=== PATIENT | female | born 1945 | race American Indian/Alaskan Native ===

== ENCOUNTER 2020-12-01 13:52 | Emergency (ER) | payer MEDICARE ==
[2020-12-01] MEDS ORDERED: cloNIDine 0.2 MG TAB PO ONE (14:56)
--- NOTE | 2020-12-01 15:00 | Event Note ---
ED Screening Note Date of service: 12/01/20 Time: 15:04 ED Screening Note: pt here in ER because her son just suffered cardiac arrest and is pt had grief response and co sob she was signed in and found to be hypertensive she did not take her bp meds bellman captain neuro intact obviously distraught This initial assessment/diagnostic orders/clinical plan/treatment(s) is/are subject to change based on patients health status, clinical progression and re- assessment by fellow clinical providers in the ED. Further treatment and workup at subsequent clinical providers discretion. Patient/guardian urged not to elope from the ED as their condition may be serious if not clinically assessed and cruzito lopez. Initial orders include: clonidine/monitor vs then reevaluate
--- NOTE | 2020-12-01 18:06 | Emergency Department Report ---
ED General Adult HPI - General Chief complaint: Anxiety Stated complaint: SOB/REACTION TO OF SON Time Seen by Provider: 12/01/20 14:49 Source: patient Mode of arrival: Ambulatory Limitations: No Limitations - History of Present Illness Initial comments: Patient is a 75-year-old F [place] female who is presenting with anxiety and need for evaluation after her son and she was having some shortness of breath. Patient denies any chest pain. States she did not take her blood pressure medicines today as of yet. When she started feeling shortness of breath after being told that her son had here in the emergency department her blood pressure was checked and it was elevated. Patient states she is calmed some at the time of our interaction is states she feels much improved. Severity scale (0 -10): 0 - Related Data Allergies Allergy/AdvReac Type Severity Reaction Status Date / Time No Known Allergies Allergy Unverified 10/24/14 09:08 ED Review of Systems ROS: Stated complaint: SOB/REACTION TO OF SON Other details as noted in HPI Comment: All other systems reviewed and negative ED Physical Exam - General Limitations: No Limitations General appearance: alert, in no apparent distress - Head Head exam: Present: atraumatic, normocephalic - Eye Eye exam: Present: normal appearance, PERRL, EOMI - ENT ENT exam: Present: mucous membranes moist - Neck Neck exam: Present: normal inspection - Respiratory Respiratory exam: Present: normal lung sounds bilaterally. Absent: respiratory distress, wheezes, rales, rhonchi - Cardiovascular Cardiovascular Exam: Present: regular rate, normal rhythm, normal heart sounds. Absent: systolic murmur, diastolic murmur, rubs, gallop - GI/Abdominal GI/Abdominal exam: Present: soft, normal bowel sounds. Absent: distended, tenderness, guarding, rebound - Extremities Exam Extremities exam: Present: normal inspection - Back Exam Back exam: Present: normal inspection - Neurological Exam Neurological exam: Present: alert, oriented X3 - Psychiatric Psychiatric exam: Present: normal affect, normal mood - Skin Skin exam: Present: warm, dry, intact, normal color. Absent: rash ED Course Vital Signs 12/01/20 14:47 Temperature 98.3 F Pulse Rate 86 Respiratory 22 Rate Blood Pressure 206/101 [Left] O2 Sat by Pulse 99 Oximetry ED Medical Decision Making - EKG Data -: EKG Interpreted by Me EKG shows normal: sinus rhythm, axis, intervals, QRS complexes, ST-T waves Rate: normal - EKG Data Interpretation: normal EKG 12/01/20 18:05 [id number] - Medical Decision Making Patient with a slight elevation of her blood pressures secondary to not taking her medications and obviously appropriate grief response from being told that her son had . Patient stable for discharge Critical care attestation.: If time is entered above; I have spent that time in minutes in the direct care of this critically ill patient, excluding procedure time. ED Disposition Clinical Impression: Grief at loss of child, Hypertensive urgency Disposition: HOME / SELF CARE / HOMELESS Is pt being admited?: No Does the pt Need Aspirin: No Condition: Stable Instructions: Managing Loss, Adult, Managing Your Hypertension Forms: AMA Form Time of Disposition: 18:06
[2020-12-01 18:45] VITALS: BP 186/86
--- NOTE | 2020-12-02 11:22 | Electrocardiograph Report ---
[facility] Test Date: 2020-12-01 Test Time: 17:30:27 Pat Name: MARIN VARGAS Department: Room: Gender: F Trust Officer: : 1945 Requested By: NIKA EPSTEIN Order Number: [id number] Reading MD: Nayan Agudelo Measurements Intervals [place] Rate: 78 P: 91 TX: 196 QRS: 60 QRSD: 91 T: 72 QT: 405 QTc: 463 Interpretive Statements Sinus rhythm No previous ECG available for comparison Electronically Signed On 12-02-2020 11:22:30 EDT by Nayan Agudelo
== END 2020-12-01 18:50 | disposition home or self-care (01) ==
LOC: ED 13:52
DX: I16.0 Hypertensive urgency (principal); F43.22 Adjustment disorder with anxiety
CPT/HCPCS: 93005; 99282